=== PATIENT | female | born 1990 | race Caucasian/White ===

== ENCOUNTER 2017-12-31 04:50 | Emergency (ER) | payer MEDICAID ==
[~2017-12-31] VITALS: Ht 165.1 cm; Wt 64.8 kg
[~2017-12-31 04:50] MED LIST: CLON-529 PO; FLUT16SP2 BOTHNARES; METH4TAB3 PO; NO HOME MEDS
[2017-12-31] MEDS ORDERED: ketorolac trometh inj. 60 MG/2 ML VIAL IM ONE (05:15)
[2017-12-31] MEDS ORDERED: AMOX-580 PO (05:15)
[2017-12-31] MEDS ORDERED: HYDROcodone/acetaminophen 5mg/325mg tablet PO ONE (05:15)
[2017-12-31 05:28] VITALS: BP 112/93
== END 2017-12-31 05:29 | disposition home or self-care (01) ==
LOC: ER 04:50
DX: K08.89 Other specified disorders of teeth and supporting structures (principal); F11.10 Opioid abuse, uncomplicated; F15.10 Other stimulant abuse, uncomplicated; F17.210 Nicotine dependence, cigarettes, uncomplicated; F41.9 Anxiety disorder, unspecified
CPT/HCPCS: 96372; 99283; J1885

== ENCOUNTER 2018-03-07 15:30 | Inpatient (IN) | payer MEDICAID ==
[~2018-03-07] VITALS: Ht 167.6 cm; Wt 65.0 kg
[2018-03-07] MEDS ORDERED: ondansetron/PF 4mg/2ml inj IV ONE (16:00)
[2018-03-07 16:27] LABS: BASOPHILS % (AUTO) 0.1 % (0-1); EOSINOPHILS % (AUTO) 0.1 % (0-6); HEMOGLOBIN 15.3 g/dl (12.0-16.0); LYMPHOCYTES # (AUTO) 0.9 X10'3 (1.1-4.8); LYMPHOCYTES % (AUTO) 6.4 % (21-51); MEAN CORPUSCULAR HEMOGLOBIN 27.1 PG (27.0-31.0); MEAN CORPUSCULAR HGB CONC 33.3 % (33.0-36.5); MEAN CORPUSCULAR VOLUME 81.3 FL (78-98); MEAN PLATELET VOLUME 8.1 FL (7.4-10.4); MONOCYTES # (AUTO) 0.9 X10'3 (0-0.9); MONOCYTES % (AUTO) 6.6 % (2-12); NEUTROPHILS # (AUTO) 11.9 X10'3 (1.8-7.7); NEUTROPHILS % (AUTO) 86.8 % (42-75); PLATELET COUNT 336 X10'3 (140-440); RED BLOOD COUNT 5.66 X10'6 (4.20-5.60); RED CELL DISTRIBUTION WIDTH 14.1 % (11.5-14.5); WHITE BLOOD COUNT 13.7 X10'3 (4.5-11.0)
[2018-03-07] MEDS ORDERED: ACETYLCYSTEINE IV ONE ×5 (16:30→22:30)
[2018-03-07] MEDS ORDERED: SODIUM CHLORIDE 0.45% IV ONE ×5 (16:30→22:30)
[2018-03-07 16:34] LABS: INR 1.2 INR; PROTHROMBIN TIME 12.7 SECONDS (9.0-12.0)
[2018-03-07 16:40] LABS: ACETAMINOPHEN 3.8 UG/ML (10-30); ALANINE AMINOTRANSFERASE 548 U/L (12-78); ALBUMIN 3.8 G/DL (3.4-5.0); ALBUMIN/GLOBULIN RATIO 0.8 (1.1-1.5); ALKALINE PHOSPHATASE 150 IU/L (46-116); ANION GAP 9 (8-16); ASPARTATE AMINO TRANSFERASE 518 U/L (10-37); BILIRUBIN,TOTAL 0.8 MG/DL (0.1-1.0); BLOOD UREA NITROGEN 11 MG/DL (7-18); BUN/CREATININE RATIO 13.4 (6.6-38.0); CHLORIDE 100 MMOL/L (99-107); CREATININE 0.82 MG/DL (0.40-0.90); GLUCOSE 97 MG/DL (70-104); LIPASE < 50 U/L (73-393); POTASSIUM 4.5 MMOL/L (3.5-5.1); SODIUM 138 MMOL/L (135-145); TOTAL PROTEIN 8.3 G/DL (6.4-8.2); eGFR 82 ML/MIN
[2018-03-07 16:46] LABS: ETHANOL < 0.010 GM/DL (0.0-0.010)
[2018-03-07 16:50] LABS: URINE HCG NEGATIVE (NEG)
[2018-03-07 17:01] LABS: URINE AMPHETAMINE SCREEN NEGATIVE (Neg); URINE BARBITUATE SCREEN NEGATIVE (Neg); URINE BENZODIAZEPINES SCREEN NEGATIVE (Neg); URINE CANNABINOID SCREEN NEGATIVE (Neg); URINE COCAINE SCREEN NEGATIVE (Neg); URINE METHADONE SCREEN NEGATIVE (Neg); URINE OPIATE SCREEN NEGATIVE (Neg); URINE PHENCYCLIDINE SCREEN NEGATIVE (Neg)
[2018-03-07] MEDS ORDERED: BUPR150T8 PO (17:25)
[2018-03-07] MEDS ORDERED: AMOX500C2 PO (17:27)
[2018-03-07] MEDS ORDERED: magnesium 4gm in 100ml NS 100 ML IV PRN (17:40)
[2018-03-07] MEDS ORDERED: magnesium 2GM in 50ml NS 50 ML IV PRN (17:40)
[2018-03-07] MEDS ORDERED: acetaminophen 325mg tablet PO PRN ×2 (17:40→18:50)
[2018-03-07] MEDS ORDERED: magnesium hydroxide 30ml (MOM) UD suspension PO PRN ×2 (17:40→18:50)
[2018-03-07] MEDS ORDERED: potassium Cl 20 mEq SR tablet PO PRN ×2 (17:40)
[2018-03-07] MEDS ORDERED: magnesium Cl slow-release 64mg tablet PO PRN (17:40)
[2018-03-07] MEDS: K and/or MAG REPLACEMENT MC SCH (17:40)
[2018-03-07] MEDS ORDERED: mag hydrox/Alum hydrox/simeth 30ml oral suspension PO PRN ×2 (17:40→18:50)
[2018-03-07] MEDS ORDERED: ondansetron/PF 4mg/2ml inj IV PRN (17:40)
[2018-03-07] MEDS ORDERED: potassium Cl 40MEQ/NS 500ml 500 ML IV PRN ×2 (17:40)
[2018-03-07] MEDS: normal saline 1000ml 1,000 ML IV SCH ×2 (17:55→19:12)
[2018-03-07] MEDS ORDERED: MORPHINE 2MG in 2ml NS syringe IV ONE (18:40)
[2018-03-07] MEDS ORDERED: morphine 4 MG/ML inj SYRINge IV PRN (18:50)
[2018-03-07 19:09] LABS: ALANINE AMINOTRANSFERASE 491 U/L (12-78); ALBUMIN 3.5 G/DL (3.4-5.0); ALBUMIN/GLOBULIN RATIO 0.8 (1.1-1.5); ALKALINE PHOSPHATASE 128 IU/L (46-116); ANION GAP 17 (8-16); ASPARTATE AMINO TRANSFERASE 402 U/L (10-37); BILIRUBIN,TOTAL 0.9 MG/DL (0.1-1.0); BLOOD UREA NITROGEN 12 MG/DL (7-18); BUN/CREATININE RATIO 15.8 (6.6-38.0); CALCIUM 8.9 MG/DL (8.5-10.1); CHLORIDE 98 MMOL/L (99-107); CREATININE 0.76 MG/DL (0.40-0.90); GLUCOSE 99 MG/DL (70-104); POTASSIUM 4.5 MMOL/L (3.5-5.1); SODIUM 143 MMOL/L (135-145); TOTAL CARBON DIOXIDE 27.7 MMOL/L (24-32); TOTAL PROTEIN 8.1 G/DL (6.4-8.2); eGFR 90 ML/MIN
[2018-03-07] MEDS: heparin, porcine 5000 units/ml vial SQ SCH (20:16)
[2018-03-07] MEDS: clindamycin 150mg capsule PO SCH (20:16)
[2018-03-07] MEDS: docusate sod 100mg capsule PO SCH (20:16)
[2018-03-07] MEDS: ondansetron/PF 4mg/2ml inj IV PRN (20:28)
[2018-03-07] MEDS ORDERED: temazepam 15mg capsule PO PRN (21:00)
[2018-03-08] MEDS: clindamycin 150mg capsule PO SCH ×4 (02:11→19:30)
[2018-03-08] MEDS: lidocaine 2% viscous 15 ML cup ***bronch room only MM PRN ×2 (02:12→04:45)
[2018-03-08] MEDS: MORPHINE 2MG in 2ml NS syringe IV PRN ×3 (04:28→17:53)
[2018-03-08] MEDS: ondansetron/PF 4mg/2ml inj IV PRN ×2 (04:29→19:31)
[2018-03-08 05:01] LABS: BASOPHILS # (AUTO) 0.2 X10'3 (0-0.2); EOSINOPHILS # (AUTO) 0.2 X10'3 (0-0.9); EOSINOPHILS % (AUTO) 1.3 % (0-6); HEMATOCRIT 42.1 % (35.0-45.0); HEMOGLOBIN 14.3 g/dl (12.0-16.0); LYMPHOCYTES # (AUTO) 1.6 X10'3 (1.1-4.8); LYMPHOCYTES % (AUTO) 9.1 % (21-51); MEAN CORPUSCULAR HEMOGLOBIN 27.5 PG (27.0-31.0); MEAN CORPUSCULAR HGB CONC 33.9 % (33.0-36.5); MEAN CORPUSCULAR VOLUME 81.2 FL (78-98); MEAN PLATELET VOLUME 7.9 FL (7.4-10.4); MONOCYTES # (AUTO) 1.2 X10'3 (0-0.9); MONOCYTES % (AUTO) 6.9 % (2-12); NEUTROPHILS # (AUTO) 14.5 X10'3 (1.8-7.7); NEUTROPHILS % (AUTO) 81.7 % (42-75); PLATELET COUNT 330 X10'3 (140-440); RED BLOOD COUNT 5.19 X10'6 (4.20-5.60); RED CELL DISTRIBUTION WIDTH 14.6 % (11.5-14.5); WHITE BLOOD COUNT 17.7 X10'3 (4.5-11.0)
[2018-03-08 05:12] LABS: INR 1.4 INR; PROTHROMBIN TIME 14.1 SECONDS (9.0-12.0)
[2018-03-08 05:17] LABS: ALANINE AMINOTRANSFERASE 441 U/L (12-78); ALBUMIN/GLOBULIN RATIO 0.8 (1.1-1.5); ALKALINE PHOSPHATASE 111 IU/L (46-116); ANION GAP 12 (8-16); ASPARTATE AMINO TRANSFERASE 310 U/L (10-37); BILIRUBIN,TOTAL 0.9 MG/DL (0.1-1.0); BLOOD UREA NITROGEN 11 MG/DL (7-18); BUN/CREATININE RATIO 13.8 (6.6-38.0); CALCIUM 8.2 MG/DL (8.5-10.1); CHLORIDE 102 MMOL/L (99-107); GLUCOSE 96 MG/DL (70-104); MAGNESIUM 1.6 MG/DL (1.5-2.4); POTASSIUM 3.8 MMOL/L (3.5-5.1); SODIUM 140 MMOL/L (135-145); TOTAL CARBON DIOXIDE 25.9 MMOL/L (24-32); eGFR 85 ML/MIN
[2018-03-08 05:18] LABS: ACETAMINOPHEN < 2.0 UG/ML (10-30)
[2018-03-08] MEDS: K and/or MAG REPLACEMENT MC SCH (08:00)
[2018-03-08] MEDS ORDERED: pantoprazole 40 MG vial IV ONE (08:00)
[2018-03-08] MEDS: heparin, porcine 5000 units/ml vial SQ SCH ×2 (09:41→19:30)
[2018-03-08] MEDS: docusate sod 100mg capsule PO SCH ×2 (09:41→19:30)
[2018-03-08] MEDS: normal saline 1000ml 1,000 ML IV SCH (09:52)
[2018-03-08 10:12] VITALS: BP 102/74
[2018-03-08 10:16] LABS: ACETAMINOPHEN < 2.0 UG/ML (10-30); ALANINE AMINOTRANSFERASE 400 U/L (12-78); ALBUMIN 2.7 G/DL (3.4-5.0); ALBUMIN/GLOBULIN RATIO 0.7 (1.1-1.5); ALKALINE PHOSPHATASE 100 IU/L (46-116); ANION GAP 8 (8-16); ASPARTATE AMINO TRANSFERASE 255 U/L (10-37); BILIRUBIN,TOTAL 0.6 MG/DL (0.1-1.0); BLOOD UREA NITROGEN 10 MG/DL (7-18); BUN/CREATININE RATIO 13.2 (6.6-38.0); CALCIUM 8.1 MG/DL (8.5-10.1); CHLORIDE 103 MMOL/L (99-107); CREATININE 0.76 MG/DL (0.40-0.90); GLUCOSE 122 MG/DL (70-104); POTASSIUM 3.8 MMOL/L (3.5-5.1); SODIUM 139 MMOL/L (135-145); TOTAL CARBON DIOXIDE 27.8 MMOL/L (24-32); TOTAL PROTEIN 6.5 G/DL (6.4-8.2); eGFR 90 ML/MIN
[2018-03-08] MEDS ORDERED: ACETYLCYSTEINE IV ONE (11:15)
[2018-03-08] MEDS ORDERED: SODIUM CHLORIDE 0.45% IV ONE (11:15)
[2018-03-08 12:43] VITALS: BP 97/61
[2018-03-08 16:31] LABS: ALANINE AMINOTRANSFERASE 427 U/L (12-78); ALBUMIN/GLOBULIN RATIO 0.8 (1.1-1.5); ALKALINE PHOSPHATASE 117 IU/L (46-116); ANION GAP 9 (8-16); ASPARTATE AMINO TRANSFERASE 232 U/L (10-37); BILIRUBIN,TOTAL 0.5 MG/DL (0.1-1.0); BLOOD UREA NITROGEN 10 MG/DL (7-18); CALCIUM 8.2 MG/DL (8.5-10.1); CHLORIDE 101 MMOL/L (99-107); CREATININE 0.77 MG/DL (0.40-0.90); GLUCOSE 99 MG/DL (70-104); POTASSIUM 3.8 MMOL/L (3.5-5.1); SODIUM 137 MMOL/L (135-145); TOTAL CARBON DIOXIDE 26.7 MMOL/L (24-32); eGFR 89 ML/MIN
[2018-03-08 16:35] LABS: ACETAMINOPHEN < 2.0 UG/ML (10-30)
[2018-03-08 18:39] LABS: ALANINE AMINOTRANSFERASE 394 U/L (12-78); ALBUMIN 2.9 G/DL (3.4-5.0); ALBUMIN/GLOBULIN RATIO 0.8 (1.1-1.5); ALKALINE PHOSPHATASE 104 IU/L (46-116); ASPARTATE AMINO TRANSFERASE 207 U/L (10-37); BILIRUBIN,DIRECT 0.2 MG/DL (0-0.3); BILIRUBIN,TOTAL 0.5 MG/DL (0.1-1.0); TOTAL PROTEIN 6.7 G/DL (6.4-8.2)
[2018-03-08 19:00] VITALS: BP_SYST 108; BP_SYST 91; BP_DIAS 53; BP_DIAS 63
[2018-03-08] MEDS: lactobacillus rhamnosus 10,000 MMU CELLS/CAPSULE PO SCH (19:30)
[2018-03-09] VITALS: BP 93/55
[2018-03-09] MEDS: clindamycin 150mg capsule PO SCH ×4 (01:52→20:56)
[2018-03-09 05:33] LABS: BASOPHILS % (AUTO) 0.5 % (0-1); EOSINOPHILS # (AUTO) 0.3 X10'3 (0-0.9); EOSINOPHILS % (AUTO) 2.4 % (0-6); HEMATOCRIT 36.6 % (35.0-45.0); HEMOGLOBIN 12.3 g/dl (12.0-16.0); LYMPHOCYTES # (AUTO) 1.3 X10'3 (1.1-4.8); LYMPHOCYTES % (AUTO) 12.3 % (21-51); MEAN CORPUSCULAR HEMOGLOBIN 27.3 PG (27.0-31.0); MEAN CORPUSCULAR HGB CONC 33.6 % (33.0-36.5); MEAN CORPUSCULAR VOLUME 81.2 FL (78-98); MEAN PLATELET VOLUME 8.4 FL (7.4-10.4); MONOCYTES % (AUTO) 9.1 % (2-12); NEUTROPHILS # (AUTO) 8.3 X10'3 (1.8-7.7); NEUTROPHILS % (AUTO) 75.7 % (42-75); PLATELET COUNT 279 X10'3 (140-440); RED BLOOD COUNT 4.51 X10'6 (4.20-5.60); RED CELL DISTRIBUTION WIDTH 14.6 % (11.5-14.5)
[2018-03-09 05:41] LABS: INR 1.1 INR; PROTHROMBIN TIME 11.6 SECONDS (9.0-12.0)
[2018-03-09 06:00] LABS: ALANINE AMINOTRANSFERASE 505 U/L (12-78); ALBUMIN 2.8 G/DL (3.4-5.0); ALBUMIN/GLOBULIN RATIO 0.8 (1.1-1.5); ALKALINE PHOSPHATASE 98 IU/L (46-116); ANION GAP 7 (8-16); ASPARTATE AMINO TRANSFERASE 381 U/L (10-37); BILIRUBIN,DIRECT 0.1 MG/DL (0-0.3); BILIRUBIN,TOTAL 0.5 MG/DL (0.1-1.0); BLOOD UREA NITROGEN 9 MG/DL (7-18); BUN/CREATININE RATIO 12.9 (6.6-38.0); CALCIUM 8.4 MG/DL (8.5-10.1); CHLORIDE 105 MMOL/L (99-107); GLUCOSE 90 MG/DL (70-104); MAGNESIUM 1.7 MG/DL (1.5-2.4); POTASSIUM 4.1 MMOL/L (3.5-5.1); SODIUM 140 MMOL/L (135-145); TOTAL CARBON DIOXIDE 28.2 MMOL/L (24-32); TOTAL PROTEIN 6.4 G/DL (6.4-8.2); eGFR > 90 ML/MIN
[2018-03-09 08:00] VITALS: BP 99/64
[2018-03-09] MEDS: K and/or MAG REPLACEMENT MC SCH (08:00)
[2018-03-09] MEDS ORDERED: SODIUM CHLORIDE 0.45% IV ONE (10:00)
[2018-03-09] MEDS ORDERED: ACETYLCYSTEINE IV ONE (10:00)
[2018-03-09] MEDS: heparin, porcine 5000 units/ml vial SQ SCH ×2 (10:12→20:58)
[2018-03-09] MEDS: docusate sod 100mg capsule PO SCH ×2 (10:12→20:56)
[2018-03-09] MEDS: lactobacillus rhamnosus 10,000 MMU CELLS/CAPSULE PO SCH ×2 (10:12→20:56)
[2018-03-09 11:31] VITALS: BP 106/62
[2018-03-09] MEDS: MORPHINE 2MG in 2ml NS syringe IV PRN ×2 (14:04→21:09)
[2018-03-09] MEDS ORDERED: ACETYLCYSTEINE IV PRN (17:10)
[2018-03-09] MEDS ORDERED: SODIUM CHLORIDE 0.45% IV PRN (17:10)
[2018-03-09 19:00] VITALS: BP 101/57
[2018-03-09] MEDS: ondansetron/PF 4mg/2ml inj IV PRN (20:56)
[2018-03-09 23:00] VITALS: BP 101/64
[2018-03-10 02:18] LABS: BASOPHILS # (AUTO) 0.1 X10'3 (0-0.2); BASOPHILS % (AUTO) 0.6 % (0-1); EOSINOPHILS # (AUTO) 0.2 X10'3 (0-0.9); EOSINOPHILS % (AUTO) 2.8 % (0-6); HEMATOCRIT 34.4 % (35.0-45.0); HEMOGLOBIN 11.5 g/dl (12.0-16.0); LYMPHOCYTES # (AUTO) 1.8 X10'3 (1.1-4.8); LYMPHOCYTES % (AUTO) 20.6 % (21-51); MEAN CORPUSCULAR HEMOGLOBIN 27.2 PG (27.0-31.0); MEAN CORPUSCULAR HGB CONC 33.4 % (33.0-36.5); MEAN CORPUSCULAR VOLUME 81.6 FL (78-98); MEAN PLATELET VOLUME 8.2 FL (7.4-10.4); MONOCYTES # (AUTO) 0.9 X10'3 (0-0.9); NEUTROPHILS # (AUTO) 5.8 X10'3 (1.8-7.7); PLATELET COUNT 358 X10'3 (140-440); RED BLOOD COUNT 4.21 X10'6 (4.20-5.60); WHITE BLOOD COUNT 8.7 X10'3 (4.5-11.0)
[2018-03-10] MEDS: clindamycin 150mg capsule PO SCH ×4 (02:56→21:14)
[2018-03-10 03:49] LABS: INR 1.1 INR; PROTHROMBIN TIME 10.9 SECONDS (9.0-12.0)
[2018-03-10 03:57] LABS: ALANINE AMINOTRANSFERASE 514 U/L (12-78); ALBUMIN 2.7 G/DL (3.4-5.0); ALBUMIN/GLOBULIN RATIO 0.7 (1.1-1.5); ALKALINE PHOSPHATASE 118 IU/L (46-116); ANION GAP 7 (8-16); ASPARTATE AMINO TRANSFERASE 209 U/L (10-37); BILIRUBIN,TOTAL 0.4 MG/DL (0.1-1.0); BLOOD UREA NITROGEN 11 MG/DL (7-18); BUN/CREATININE RATIO 17.2 (6.6-38.0); CALCIUM 8.4 MG/DL (8.5-10.1); CHLORIDE 104 MMOL/L (99-107); CREATININE 0.64 MG/DL (0.40-0.90); GLUCOSE 102 MG/DL (70-104); MAGNESIUM 1.7 MG/DL (1.5-2.4); POTASSIUM 3.8 MMOL/L (3.5-5.1); SODIUM 140 MMOL/L (135-145); TOTAL CARBON DIOXIDE 28.7 MMOL/L (24-32); TOTAL PROTEIN 6.7 G/DL (6.4-8.2); eGFR > 90 ML/MIN
[2018-03-10] MEDS: K and/or MAG REPLACEMENT MC SCH (07:11)
[2018-03-10] MEDS: lactobacillus rhamnosus 10,000 MMU CELLS/CAPSULE PO SCH ×2 (07:17→21:15)
[2018-03-10] MEDS: heparin, porcine 5000 units/ml vial SQ SCH ×2 (07:17→21:14)
[2018-03-10] MEDS: docusate sod 100mg capsule PO SCH ×2 (07:17→21:14)
[2018-03-10 07:46] VITALS: BP 103/53
[2018-03-10 12:51] VITALS: BP 104/61
[2018-03-10] MEDS: MORPHINE 2MG in 2ml NS syringe IV PRN ×2 (17:28→23:12)
[2018-03-10 22:36] LABS: ALANINE AMINOTRANSFERASE 387 U/L (12-78); ALBUMIN 2.8 G/DL (3.4-5.0); ALBUMIN/GLOBULIN RATIO 0.7 (1.1-1.5); ALKALINE PHOSPHATASE 114 IU/L (46-116); ANION GAP 6 (8-16); ASPARTATE AMINO TRANSFERASE 106 U/L (10-37); BILIRUBIN,TOTAL 0.3 MG/DL (0.1-1.0); BLOOD UREA NITROGEN 14 MG/DL (7-18); BUN/CREATININE RATIO 23.3 (6.6-38.0); CALCIUM 8.7 MG/DL (8.5-10.1); CHLORIDE 103 MMOL/L (99-107); GLUCOSE 94 MG/DL (70-104); POTASSIUM 3.9 MMOL/L (3.5-5.1); SODIUM 140 MMOL/L (135-145); TOTAL CARBON DIOXIDE 31.1 MMOL/L (24-32); TOTAL PROTEIN 6.9 G/DL (6.4-8.2); eGFR > 90 ML/MIN
[2018-03-10 23:30] VITALS: BP 94/54
[2018-03-11] MEDS: clindamycin 150mg capsule PO SCH ×2 (02:03→07:29)
[2018-03-11 05:03] LABS: BASOPHILS # (AUTO) 0.1 X10'3 (0-0.2); BASOPHILS % (AUTO) 1.4 % (0-1); EOSINOPHILS # (AUTO) 0.2 X10'3 (0-0.9); EOSINOPHILS % (AUTO) 3.1 % (0-6); HEMATOCRIT 34.1 % (35.0-45.0); HEMOGLOBIN 11.4 g/dl (12.0-16.0); LYMPHOCYTES # (AUTO) 2.5 X10'3 (1.1-4.8); LYMPHOCYTES % (AUTO) 31.8 % (21-51); MEAN CORPUSCULAR HGB CONC 33.2 % (33.0-36.5); MEAN CORPUSCULAR VOLUME 81.4 FL (78-98); MEAN PLATELET VOLUME 8.5 FL (7.4-10.4); MONOCYTES # (AUTO) 0.7 X10'3 (0-0.9); MONOCYTES % (AUTO) 9.7 % (2-12); NEUTROPHILS # (AUTO) 4.2 X10'3 (1.8-7.7); PLATELET COUNT 289 X10'3 (140-440); RED CELL DISTRIBUTION WIDTH 14.7 % (11.5-14.5); WHITE BLOOD COUNT 7.7 X10'3 (4.5-11.0)
[2018-03-11 05:22] LABS: ALANINE AMINOTRANSFERASE 342 U/L (12-78); ALBUMIN 2.7 G/DL (3.4-5.0); ALBUMIN/GLOBULIN RATIO 0.7 (1.1-1.5); ALKALINE PHOSPHATASE 107 IU/L (46-116); ANION GAP 8 (8-16); ASPARTATE AMINO TRANSFERASE 91 U/L (10-37); BILIRUBIN,TOTAL 0.2 MG/DL (0.1-1.0); BLOOD UREA NITROGEN 17 MG/DL (7-18); BUN/CREATININE RATIO 30.9 (6.6-38.0); CALCIUM 8.5 MG/DL (8.5-10.1); CHLORIDE 104 MMOL/L (99-107); CREATININE 0.55 MG/DL (0.40-0.90); GLUCOSE 87 MG/DL (70-104); MAGNESIUM 1.7 MG/DL (1.5-2.4); POTASSIUM 3.7 MMOL/L (3.5-5.1); SODIUM 142 MMOL/L (135-145); TOTAL PROTEIN 6.4 G/DL (6.4-8.2); eGFR > 90 ML/MIN
[2018-03-11 06:29] LABS: PROTHROMBIN TIME 9.9 SECONDS (9.0-12.0)
[2018-03-11 07:11] VITALS: BP 93/56
[2018-03-11] MEDS: K and/or MAG REPLACEMENT MC SCH (07:29)
[2018-03-11] MEDS: docusate sod 100mg capsule PO SCH (07:29)
[2018-03-11] MEDS: lactobacillus rhamnosus 10,000 MMU CELLS/CAPSULE PO SCH (07:30)
[2018-03-11] MEDS: heparin, porcine 5000 units/ml vial SQ SCH (07:30)
[2018-03-11] MEDS ORDERED: HYDROcodone/acetaminophen 5mg/325mg tablet PO ONE (11:40)
[2018-03-11 11:45] VITALS: BP 98/51
[2018-03-11] MEDS ORDERED: HYDROcodone/acetaminophen 10/325mg tab PO ONE (11:45)
== END 2018-03-11 12:30 | disposition home or self-care (01) | DRG 812 ==
LOC: ER 15:31 → ED HOLD 17:37 → UNDOADMIN 17:37 → SUR 3N 03-08 09:14
PROVIDERS: ADMIT Family Medicine; ATTEND Internal Medicine
DX: T39.1X1A Poisoning by 4-Aminophenol derivatives, accidental (unintentional), initial encounter (principal); K50.90 Crohn's disease, unspecified, without complications; B17.9 Acute viral hepatitis, unspecified; F11.10 Opioid abuse, uncomplicated; F15.10 Other stimulant abuse, uncomplicated; F17.210 Nicotine dependence, cigarettes, uncomplicated; F41.9 Anxiety disorder, unspecified; K04.7 Periapical abscess without sinus; Y92.89 Other specified places as the place of occurrence of the external cause; Z79.899 Other long term (current) drug therapy; Z56.0 Unemployment, unspecified
CPT/HCPCS: 36415; 71045; 80053; 80076; 80305; 80320; 80329; 81025; 83690; 83735; 85025; 85610; 87070; 96374; 99285; C9113; J0132; J1644; J2274; J2405; J7030

== ENCOUNTER 2018-04-15 16:02 | Emergency (ER) | payer MEDICAID ==
[~2018-04-15] VITALS: Ht 165.1 cm; Wt 64.0 kg
[~2018-04-15 16:02] MED LIST changes: +AMOX500C2 PO; +BUPR150T8 PO; -CLON-529 PO; -FLUT16SP2 BOTHNARES; -METH4TAB3 PO; -NO HOME MEDS
[2018-04-15 16:41] LABS: URINE HCG NEGATIVE (NEG)
[2018-04-15 16:42] LABS: CLARITY,URINE CLOUDY (Clear); COLOR,URINE YELLOW (Yellow); GLUCOSE, URINE NEGATIVE (Neg); KETONES,URINE NEGATIVE (Neg); LEUKOCYTE ESTERASE ,URINE LARGE (Neg); NITRITES, URINE NEGATIVE (Neg); OCCULT BLOOD,URINE LARGE (Neg); PH,URINE 7.5 (4.8-8.0); PROTEIN,URINE >=300 mg/dl (Neg)
[2018-04-15 16:44] LABS: UA COLLECTION TYPE CLN CATCH MIDSTREAM
[2018-04-15 16:52] LABS: BACTERIA,URINE FEW /HPF (Neg); MUCUS STRANDS NONE SEEN /LPF (Neg); SQUAMOUS EPITHELIAL CELL,UR FEW /LPF (FEW); WBC,URINE TNTC /HPF (0-4)
[2018-04-15] MEDS ORDERED: PHEN-716 PO (16:58)
[2018-04-15] MEDS ORDERED: CEPH-572 PO (16:58)
[2018-04-15 17:04] VITALS: BP 128/75
== END 2018-04-15 17:08 | disposition home or self-care (01) ==
LOC: ER 16:03
DX: N39.0 Urinary tract infection, site not specified (principal); F15.90 Other stimulant use, unspecified, uncomplicated; F11.90 Opioid use, unspecified, uncomplicated; Z56.0 Unemployment, unspecified; Z98.890 Other specified postprocedural states; Z79.899 Other long term (current) drug therapy
CPT/HCPCS: 81001; 81025; 87077; 87088; 87186; 99284

== ENCOUNTER 2018-06-28 16:09 | Emergency (ER) | payer MEDICAID ==
[~2018-06-28] VITALS: Ht 165.1 cm; Wt 63.0 kg
[~2018-06-28 16:09] MED LIST changes: +PHEN-716 PO
[2018-06-28] MEDS ORDERED: BUPR2TAB11 SL (16:51)
[2018-06-28] MEDS ORDERED: normal saline 1000ML IV soln IVB ONE (18:55)
[2018-06-28 19:19] LABS: BASOPHILS % (AUTO) 0.3 % (0-1); EOSINOPHILS % (AUTO) 0.4 % (0-6); HEMOGLOBIN 12.8 g/dl (12.0-16.0); LYMPHOCYTES # (AUTO) 1.2 X10'3 (1.1-4.8); LYMPHOCYTES % (AUTO) 16.7 % (21-51); MEAN CORPUSCULAR HEMOGLOBIN 25.9 PG (27.0-31.0); MEAN CORPUSCULAR HGB CONC 32.9 % (33.0-36.5); MEAN CORPUSCULAR VOLUME 78.6 FL (78-98); MEAN PLATELET VOLUME 7.7 FL (7.4-10.4); MONOCYTES # (AUTO) 0.4 X10'3 (0-0.9); MONOCYTES % (AUTO) 5.1 % (2-12); NEUTROPHILS # (AUTO) 5.8 X10'3 (1.8-7.7); NEUTROPHILS % (AUTO) 77.5 % (42-75); PLATELET COUNT 213 X10'3 (140-440); RED BLOOD COUNT 4.96 X10'6 (4.20-5.60); RED CELL DISTRIBUTION WIDTH 14.3 % (11.5-14.5); WHITE BLOOD COUNT 7.4 X10'3 (4.5-11.0)
[2018-06-28 19:41] LABS: ALANINE AMINOTRANSFERASE 25 U/L (12-78); ALBUMIN 3.5 G/DL (3.4-5.0); ALBUMIN/GLOBULIN RATIO 0.8 (1.1-1.5); ALKALINE PHOSPHATASE 99 IU/L (46-116); ANION GAP 3 (8-16); ASPARTATE AMINO TRANSFERASE 25 U/L (10-37); BILIRUBIN,TOTAL 0.3 MG/DL (0.1-1.0); BLOOD UREA NITROGEN 9 MG/DL (7-18); BUN/CREATININE RATIO 12.9 (6.6-38.0); CALCIUM 8.7 MG/DL (8.5-10.1); CHLORIDE 103 MMOL/L (99-107); GLUCOSE 95 MG/DL (70-104); POTASSIUM 4.4 MMOL/L (3.5-5.1); SODIUM 136 MMOL/L (135-145); TOTAL CARBON DIOXIDE 29.6 MMOL/L (24-32); eGFR > 90 ML/MIN
[2018-06-28] MEDS ORDERED: ondansetron 4mg rapidly disintigrating tab PO ONE (20:00)
[2018-06-28 20:08] VITALS: BP 107/81
== END 2018-06-28 20:09 | disposition home or self-care (01) ==
LOC: ER 16:10
DX: T40.601A Poisoning by unspecified narcotics, accidental (unintentional), initial encounter (principal); R11.2 Nausea with vomiting, unspecified; F15.10 Other stimulant abuse, uncomplicated; F11.10 Opioid abuse, uncomplicated; R61 Generalized hyperhidrosis; E86.0 Dehydration; Z56.0 Unemployment, unspecified; Z79.899 Other long term (current) drug therapy; Z98.890 Other specified postprocedural states; Y92.89 Other specified places as the place of occurrence of the external cause
CPT/HCPCS: 36415; 80053; 85025; 96360; 99284; J7030

== ENCOUNTER 2019-06-07 18:24 | Emergency (ER) | payer MEDICAID ==
[~2019-06-07] VITALS: Ht 165.1 cm; Wt 51.5 kg
[~2019-06-07 18:24] MED LIST changes: -AMOX500C2 PO; -BUPR150T8 PO; +BUPR2TAB11 SL; -PHEN-716 PO
--- NOTE | 2019-06-07 20:36 | NUR ---
PATIENT HERE FOR MEDICAL CLEARANCE FOR ENTRANCE INTO TREATMENT FOR VISION OF THE CROSS, LAST USE OF HEROIN AND METH WAS YESTERDAY. PATIENT ESTIMATES THAT SHE IS 10 WEEKS
[2019-06-07 20:38] VITALS: BP 120/76
== END 2019-06-07 20:40 | disposition home or self-care (01) ==
LOC: ER 18:25
DX: O99.321 Drug use complicating pregnancy, first trimester (principal); F11.90 Opioid use, unspecified, uncomplicated; F15.90 Other stimulant use, unspecified, uncomplicated; F41.9 Anxiety disorder, unspecified; Z98.890 Other specified postprocedural states; Z56.0 Unemployment, unspecified; Z79.899 Other long term (current) drug therapy; Z3A.10 10 weeks gestation of pregnancy
CPT/HCPCS: 99281

== ENCOUNTER 2019-08-24 20:57 | Emergency (ER) | payer MEDICAID ==
[~2019-08-24] VITALS: Ht 165.1 cm; Wt 64.0 kg
[~2019-08-24 20:57] MED LIST changes: +LIDOcaine 1% W/epiNEPHrine 1:100,000 20ml vial ONE
[2019-08-24] MEDS ORDERED: ketorolac trometh inj. 60 MG/2 ML VIAL IM ONE (21:50)
[2019-08-24] MEDS ORDERED: SULF1TAB49 PO (21:53)
[2019-08-24 22:40] VITALS: BP 123/69
== END 2019-08-24 22:41 | disposition home or self-care (01) ==
LOC: ER 21:02
DX: L02.511 Cutaneous abscess of right hand (principal); F41.9 Anxiety disorder, unspecified; F15.90 Other stimulant use, unspecified, uncomplicated; F11.90 Opioid use, unspecified, uncomplicated; Z56.0 Unemployment, unspecified; Z79.899 Other long term (current) drug therapy; Z98.890 Other specified postprocedural states
CPT/HCPCS: 10060; 96372; 99283; J1885

== ENCOUNTER 2019-12-05 07:13 | Emergency (ER) | payer MEDICAID ==
[~2019-12-05] VITALS: Ht 165.1 cm; Wt 60.0 kg
[~2019-12-05 07:13] MED LIST changes: -LIDOcaine 1% W/epiNEPHrine 1:100,000 20ml vial ONE
--- NOTE | 2019-12-05 07:41 | NUR ---
pt ambulated to bathroom with steady gait, no assistance needed to give urine sample. ambulated about 100 feet total.
[2019-12-05] MEDS ORDERED: normal saline 1000ML IV soln IVB ONE ×2 (07:45)
--- NOTE | 2019-12-05 08:00 | NUR ---
attempted IV x2 will see if ultrasound available.
[2019-12-05 08:17] LABS: BASOPHILS # (AUTO) 0.1 X10'3 (0-0.2); BASOPHILS % (AUTO) 0.6 % (0-1); EOSINOPHILS # (AUTO) 0.1 X10'3 (0-0.9); EOSINOPHILS % (AUTO) 0.4 % (0-6); HEMOGLOBIN 11.4 g/dl (12.0-16.0); LYMPHOCYTES # (AUTO) 3.3 X10'3 (1.1-4.8); LYMPHOCYTES % (AUTO) 19.6 % (21-51); MEAN CORPUSCULAR HEMOGLOBIN 23.1 PG (27.0-31.0); MEAN CORPUSCULAR HGB CONC 31.7 g/dL (33.0-36.5); MEAN CORPUSCULAR VOLUME 72.9 FL (78-98); MEAN PLATELET VOLUME 8.5 FL (7.4-10.4); MONOCYTES # (AUTO) 1.4 X10'3 (0-0.9); NEUTROPHILS % (AUTO) 71.4 % (42-75); PLATELET COUNT 557 X10'3 (140-440); RED BLOOD COUNT 4.94 X10'6 (4.20-5.60); RED CELL DISTRIBUTION WIDTH 15.5 % (11.5-14.5); WHITE BLOOD COUNT 16.8 X10'3 (4.5-11.0)
[2019-12-05 08:23] LABS: CLARITY,URINE CLEAR (Clear); COLOR,URINE YELLOW (Yellow); GLUCOSE, URINE NEGATIVE (Neg); KETONES,URINE NEGATIVE (Neg); LEUKOCYTE ESTERASE ,URINE NEGATIVE (Neg); NITRITES, URINE NEGATIVE (Neg); OCCULT BLOOD,URINE NEGATIVE (Neg); PROTEIN,URINE NEGATIVE (Neg); UA COLLECTION TYPE CLN CATCH MIDSTREAM; UROBILINOGEN,URINE 0.2 E.U/dL (0.2-1.0)
[2019-12-05 09:21] LABS: ALANINE AMINOTRANSFERASE 28 U/L (12-78); ALBUMIN 2.4 G/DL (3.4-5.0); ALBUMIN/GLOBULIN RATIO 0.4 (1.1-1.5); ALKALINE PHOSPHATASE 324 IU/L (46-116); ANION GAP 12 (8-16); ASPARTATE AMINO TRANSFERASE 30 U/L (10-37); BILIRUBIN,TOTAL 0.6 MG/DL (0.1-1.0); BLOOD UREA NITROGEN 6 MG/DL (7-18); BUN/CREATININE RATIO 9.4 (6.6-38.0); CALCIUM 8.7 MG/DL (8.5-10.1); CHLORIDE 102 MMOL/L (99-107); CREATININE 0.64 MG/DL (0.40-0.90); GLUCOSE 81 MG/DL (70-104); LIPASE 56 U/L (73-393); POTASSIUM 3.7 MMOL/L (3.5-5.1); SODIUM 135 MMOL/L (135-145); TOTAL CARBON DIOXIDE 20.8 MMOL/L (24-32); TOTAL PROTEIN 7.8 G/DL (6.4-8.2); eGFR > 90 ML/MIN
[2019-12-05] MEDS ORDERED: predniSONE 20 mg tablet PO ONE (09:55)
[2019-12-05] MEDS ORDERED: acetaminophen 325mg tablet PO ONE (09:55)
[2019-12-05] MEDS ORDERED: PRED20TA PO (09:57)
[2019-12-05 10:09] VITALS: BP 147/71
[2019-12-05 10:35] LABS: URINE AMPHETAMINE SCREEN POSITIVE (Neg); URINE BARBITUATE SCREEN NEGATIVE (Neg); URINE BENZODIAZEPINES SCREEN NEGATIVE (Neg); URINE CANNABINOID SCREEN NEGATIVE (Neg); URINE COCAINE SCREEN NEGATIVE (Neg); URINE METHADONE SCREEN NEGATIVE (Neg); URINE OPIATE SCREEN POSITIVE (Neg); URINE PHENCYCLIDINE SCREEN NEGATIVE (Neg)
== END 2019-12-05 10:13 | disposition home or self-care (01) ==
LOC: ER 07:14
DX: O26.893 Other specified pregnancy related conditions, third trimester (principal); O21.9 Vomiting of pregnancy, unspecified; O99.343 Other mental disorders complicating pregnancy, third trimester; O99.313 Alcohol use complicating pregnancy, third trimester; O99.323 Drug use complicating pregnancy, third trimester; E86.0 Dehydration; R19.7 Diarrhea, unspecified; R10.84 Generalized abdominal pain; F41.9 Anxiety disorder, unspecified; F15.90 Other stimulant use, unspecified, uncomplicated; F11.90 Opioid use, unspecified, uncomplicated; Z56.0 Unemployment, unspecified; Z98.890 Other specified postprocedural states; Z79.899 Other long term (current) drug therapy
CPT/HCPCS: 36415; 80053; 80305; 81003; 83690; 85025; 96360; 99283; J7030; J7512

== ENCOUNTER 2020-11-03 08:07 | Emergency (ER) | payer MEDICAID ==
[~2020-11-03] VITALS: Ht 165.1 cm; Wt 55.4 kg
[2020-11-03 08:16] VITALS: BP 108/77
--- NOTE | 2020-11-03 08:53 | NUR ---
Walked to bedside with MD. Found pt's room empty. Went to registration, who stated that the pt was using the public phone next to the registration box. Registration then had to lave their box and the pt was gone when they returned. Screener at front door states that she witnessed the pt ambulating out of the department with a steady gait.
== END 2020-11-03 08:57 | disposition left against medical advice (07) ==
LOC: ER 08:08
DX: F41.9 Anxiety disorder, unspecified (principal); Z53.21 Procedure and treatment not carried out due to patient leaving prior to being seen by health care provider

== ENCOUNTER 2021-03-26 13:22 | Emergency (ER) | payer MEDICAID ==
[~2021-03-26] VITALS: Ht 167.6 cm; Wt 59.2 kg
[2021-03-26] MEDS ORDERED: normal saline 1000ML IV soln IVB ONE (13:50)
[2021-03-26] MEDS ORDERED: aspirin 81mg tab.chew PO ONE (13:50)
[2021-03-26] MEDS ORDERED: LORazepam 2 mg/ml vial IV ONE ×2 (14:00→15:35)
[2021-03-26] MEDS ORDERED: cloNIDine 0.1 mg tablet PO ONE (14:00)
[2021-03-26 14:43] LABS: BASOPHILS # (AUTO) 0.1 X10'3 (0-0.2); BASOPHILS % (AUTO) 0.7 % (0-1); EOSINOPHILS # (AUTO) 0.1 X10'3 (0-0.9); EOSINOPHILS % (AUTO) 0.5 % (0-6); HEMATOCRIT 39.3 % (35.0-45.0); HEMOGLOBIN 12.8 g/dl (12.0-16.0); LYMPHOCYTES # (AUTO) 0.9 X10'3 (1.1-4.8); LYMPHOCYTES % (AUTO) 10.1 % (21-51); MEAN CORPUSCULAR HGB CONC 32.7 g/dL (33.0-36.5); MEAN CORPUSCULAR VOLUME 79.5 FL (78-98); MEAN PLATELET VOLUME 8.1 FL (7.4-10.4); MONOCYTES # (AUTO) 0.4 X10'3 (0-0.9); MONOCYTES % (AUTO) 4.4 % (2-12); NEUTROPHILS # (AUTO) 7.9 X10'3 (1.8-7.7); NEUTROPHILS % (AUTO) 84.3 % (42-75); PLATELET COUNT 310 X10'3 (140-440); RED BLOOD COUNT 4.94 X10'6 (4.20-5.60); RED CELL DISTRIBUTION WIDTH 14.6 % (11.5-14.5); WHITE BLOOD COUNT 9.3 X10'3 (4.5-11.0)
[2021-03-26 15:47] LABS: ALANINE AMINOTRANSFERASE 34 U/L (12-78); ALBUMIN 3.6 G/DL (3.4-5.0); ALBUMIN/GLOBULIN RATIO 0.8 (1.1-1.5); ALKALINE PHOSPHATASE 110 IU/L (46-116); ANION GAP 11 (8-16); ASPARTATE AMINO TRANSFERASE 28 U/L (10-37); BILIRUBIN,TOTAL 0.2 MG/DL (0.1-1.0); BLOOD UREA NITROGEN 4 MG/DL (7-18); BUN/CREATININE RATIO 6.8 (6.6-38.0); CALCIUM 8.5 MG/DL (8.5-10.1); CHLORIDE 103 MMOL/L (99-107); CREATININE 0.59 MG/DL (0.40-0.90); GLUCOSE 105 MG/DL (70-104); POTASSIUM 3.9 MMOL/L (3.5-5.1); SODIUM 140 MMOL/L (135-145); TOTAL CARBON DIOXIDE 25.8 MMOL/L (24-32); TOTAL PROTEIN 7.9 G/DL (6.4-8.2); eGFR > 90 ML/MIN
[2021-03-26] MEDS ORDERED: LIDOcaine 1% W/epiNEPHrine 1:200,000 10ml vial IJ ONE (15:50)
[2021-03-26] MEDS ORDERED: CEPH-585 PO (17:40)
[2021-03-26] MEDS ORDERED: SULF1TAB49 PO (17:40)
[2021-03-26] MEDS ORDERED: cephalexin 250mg capsule PO ONE (18:00)
[2021-03-26] MEDS ORDERED: sulfamethoxazole/trimethoprim DS (800/160mg) tablet PO ONE (18:00)
[2021-03-26] MEDS ORDERED: naloxone 2mg/2ml inj IV STA (20:07)
--- NOTE | 2021-03-26 20:11 | NUR ---
PT REMAINS EXTREMELY SOMULENT BUT WILL AWAKEN WITH STERNAL RUB - UNK IF FROM EARLIER ATIVAN OR HEROIN USE. VERBAL FROM [facility] FOR 2MG NARCAN. PT MORE RESPONSIVE S\P NARCAN BUT STILL WON'T TELL US A PHONE NUMBER OR ADDRESS.
--- NOTE | 2021-03-26 21:12 | NUR ---
phone # & address pulled from [facility] website. [id number]
--- NOTE | 2021-03-26 23:30 | NUR ---
PT AWAKE AND EATING YOGURT, UNABLE TO STAY AWAKE,
--- NOTE | 2021-03-27 00:28 | NUR ---
PT AWAKE AMBULATED TO THE [facility] W/O DIFFICULTY.
--- NOTE | 2021-03-27 00:30 | NUR ---
CONTACTED PTS MOM FOR A NAME AND NUMBER OF A PERSON WHO WILL BE AT THE ADDRESS ON FILE IF WE CALL A CAB. THIS PERSON IS SHIRLEY [phone], MOM ZOHAIB [phone]
[2021-03-27 00:39] VITALS: BP 127/82
== END 2021-03-27 00:50 | disposition home or self-care (01) ==
LOC: ER 13:22
DX: L02.414 Cutaneous abscess of left upper limb (principal); R07.89 Other chest pain; R06.02 Shortness of breath; R00.0 Tachycardia, unspecified; F41.9 Anxiety disorder, unspecified; F15.90 Other stimulant use, unspecified, uncomplicated; F11.90 Opioid use, unspecified, uncomplicated; Z87.440 Personal history of urinary (tract) infections; Z98.890 Other specified postprocedural states; Z72.89 Other problems related to lifestyle; Z56.0 Unemployment, unspecified; Z79.2 Long term (current) use of antibiotics; Z79.899 Other long term (current) drug therapy
CPT/HCPCS: 10060; 36415; 71045; 80053; 83735; 83880; 84484; 85025; 87070; 87077; 87186; 93005; 96361; 96374; 96375; 96376; 99285; J2060; J2310; J7030

== ENCOUNTER 2025-07-12 18:52 | Emergency (ER) | payer MEDICAID ==
[~2025-07-12] VITALS: Ht 165.1 cm; Wt 59.1 kg
[2025-07-12 18:59] VITALS: BP 119/82; TEMP 98.1
--- NOTE | 2025-07-12 19:07 | Physician Documentation ---
History of Present Illness ~ Chief Complaint: Abscess Stated Complaint: SPIDER BITE Time Seen by MD: 19:01 Primary Medical Doctor: wander MANCILLA This is a 34-year-old female who reports no prior medical history, denies HAV, diabetes, any other immunocompromise, presents for evaluation of wound, swelling, purulent discharge on the right foot that has been present for two da ys. Denies any trigger provocation. She is homeless. Is exposed to elements. The pain is worse when she is ambulating. Palliated with the position of comfort. She went to [facility] several days ago, they gave me a shot. 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 Her symptoms are not improving. She reports chills. She smokes, uses methamphetamines, denies use of alcohol, denies any chance of being . Tetanus Within 5 Years: Yes Medication Reconciliation Allergies: Coded Allergies: No Known Allergies (Unverified , 09/05/16) Scheduled Buprenorphine Hcl (Buprenorphine Hcl), Unknown Dose SL DAILY, (Reported) Past Medical History Past Medical History: *GI/HEPATOBILIARY*, UTI, Anxiety Past Surgical History: orthopedic surgeries Patient History: Breast cancer FAMILY/OTHER (Sister), Age: 30 Alcohol Use: Abuse Drug Use: methamphetamine, heroin Lives with: S/O Lives In: Home Occupation: unemployed Review of Systems ROS 10 point review of systems was performed and unless noted above in HPI is negative for acute process/complaint. Physical Exam Vital Signs: Temperature: 98.1, Source: Temporal, Heart Rate: 136, Respiratory Rate: 15, BP: 119/82, Pulse Oximetry: 99 Physical Exam GENERAL: Awake, alert, oriented, GCS 15, no apparent distress, non-toxic appearing, answers questions, follows commands appropriately. HEENT: Atraumatic, normocephalic, pupils equal, extraocular muscles intact, sclerae anicteric, mucus membranes moist, oropharynx is clear, no stridor. NECK: supple, full active range of motion, trachea midline, no thyromegaly, no lymphadenopathy, no JVD. CARDIOVASCULAR: Tachycardic and regular rate/rhythm, no murmurs/gallops/rubs, Pulses are 2+ in all extremities and symmetric. Capillary refill less than 2 seconds. PULMONARY: Nonlabored, good air movement ,no respiratory distress, speaking in full sentences, clear to auscultation bilaterally, no wheezing, no ronchi, no rales, no accessory muscle use. GASTROINTESTINAL: Soft, non-tender, non-distended, normal active bowel sounds, no organomegaly, no pulsatile masses, no CVA tenderness. NEUROLOGIC: Lucid with normal mental status. Normal facial symmetry. Moves all extremities symmetrically and with purpose. No truncal ataxia. Speech is fluid without evidence of dysarthria or aphasia, no focal deficits appreciated. MUSCULOSKELETAL: There is full range of motion of all extremities. There is no joint pain or joint swelling or joint erythema. There is no muscle pain or tenderness or swelling. EXTREMITIES: warm, well-perfused, no cyanosis, no clubbing, no edema, no acute deformities. Skin: warm, dry, no rashes or lesions, no jaundice, no petechiae orpurpura. No ecchymosis. PSYCHIATRIC: Normal affect, normal insight, normal concentration. Focused exam: [There is marked swelling, tenderness, calor with a a umbilicated 1.5 cm wound that arises above the foot. Small amount of clear and purulent discharge. Cap refill less than 2 seconds. No lymphangitis. Progress Results/Orders Results/Orders Orders - MITCHELL MOSQUERA DO Ct Lower Extremity (07/12/25 19:01) Culture Blood (07/12/25 19:01) Urinalysis, Cult If Indicated (07/12/25 19:) Saline Lock (07/12/25 19:01) Hcg, Ur Ql (07/12/25 19:01) Drug Screen, Urine (07/12/25 19:) Potassium Cl 10meq/100ml Bag (Potassium (07/12/25 20:35) Completed Orders - MITCHELL MOSQUERA DO Cbc/Diff (07/12/25 19:) ESR (07/12/25 19:) C-Reactive Protein (07/12/25 19:01) CMP (07/12/25 19:) Lacticsepsis (07/12/25 19:) Hcg Serum Ql (07/12/25 19:) Ethanol (07/12/25 19:01) Piperacillin/Tazo 4.5gm/100ml (Zosyn 4.5 (07/12/25 19:05) Normal Saline 1000ml (0.9% Sodium Chlori (07/12/25 19:05) Iohexol 300mg/Ml 100ml Inj. (Omnipaque-3 (07/12/25 20:01) Potassium Bicarb/Cit Acid Tab (K-Lyte Ta (07/12/25 20:35) Ondansetron Inj. (Zofran 4mg/2ml Vial) (07/12/25 20:35) Magnesium Sulf-Water 2g/50ml (Magnesium (07/12/25 20:35) Medications Received in ER Medications (Trade) Dose Ordered Sig/Wander Route PRN Reason Start Time Stop Time Status Last Admin Dose Admin Piperacillin/ Tazobactam/ Dextrose 100 ml @ 100 mls/hr ONCE ONCE IV 07/12/25 19:05 07/12/25 20:04 DC 07/12/25 21:18 100 MLS/HR (0.9% sodium chloride (NS) 1000ml IV soln) 1,000 ml ONCE ONCE IVB 07/12/25 19:05 07/12/25 19:06 DC 07/12/25 20:55 1,000 ML (K-Lyte tablet, effervescent) 50 meq ONCE ONCE PO 07/12/25 20:35 07/12/25 21:04 DC 07/12/25 22:09 50 MEQ Potassium Chloride 100 ml @ 100 mls/hr Q1H IV 07/12/25 20:35 07/13/25 00:34 07/12/25 22:19 100 MLS/HR (Zofran 4mg/2ml vial) 4 mg ONCE ONCE IV 07/12/25 20:35 07/12/25 20:52 DC 07/12/25 22:14 4 MG Magnesium Sulfate 50 ml @ 100 mls/hr ONCE ONCE IV 07/12/25 20:35 07/12/25 21:04 DC 07/12/25 22:00 100 MLS/HR Vital Signs 07/12/25 18:59 Temp 98.1 Pulse 136 Resp 15 B/P (MAP) 119/82 Pulse Ox 99 Laboratory Tests Test 07/12/25 19:38 White Blood Count 12.3 H Red Blood Count 4.73 Hemoglobin 12.4 Hematocrit 38.2 Mean Corpuscular Volume 80.7 Mean Corpuscular Hemoglobin 26.2 L Mean Corpuscular Hemoglobin Concent 32.5 L Red Cell Distribution Width 14.1 Platelet Count 420 Mean Platelet Volume 7.9 Neutrophils (%) (Auto) 74.0 Lymphocytes (%) (Auto) 16.7 L Monocytes (%) (Auto) 7.1 Eosinophils (%) (Auto) 1.7 Basophils (%) (Auto) 0.5 Neutrophils # (Auto) 9.1 H Lymphocytes # (Auto) 2.1 Monocytes # (Auto) 0.9 Eosinophils # (Auto) 0.2 Basophils # (Auto) 0.1 CBC Comment Erythrocyte Sedimentation Rate 25 H Sodium Level 137 Potassium Level 2.8 *L Chloride Level 98 L Carbon Dioxide Level 30.1 Anion Gap 9 Blood Urea Nitrogen 3 L Creatinine 0.69 Estimated GFR/1.73 m2 > 90 BUN/Creatinine Ratio 4.3 L Glucose Level 101 Lactic Acid Level 1.6 Calcium Level 8.5 Total Bilirubin 0.4 Aspartate Amino Transf (AST/SGOT) 25 Alanine Aminotransferase (ALT/SGPT) 33 Alkaline Phosphatase 196 H C-Reactive Protein 14.21 H Total Protein 7.9 Albumin 3.3 L Globulin 4.6 H Albumin/Globulin Ratio 0.7 L Human Chorionic Gonadotropin, Qual Negative Chemistry Comments Ethyl Alcohol Level < 10 Microbiology Date/Time Source Procedure Growth Status 07/12/25 19:38 Blood Hand Left Blood Culture - Preliminary NEGATIVE (LESS THAN 24 HOURS) Resulted Medical Decision Making Findings Facility Status: [facility] The plan was discussed with the patient, who demonstrates clear understanding of the plan and is in agreement with the plan unless otherwise noted in the chart. All questions have been answered, all concerns were addressed unless otherwise documented. I was available throughout their ED stay for frequent reassessment and questions. Differential Diagnoses (considered and possible or likely): [Cellulitis, abscess, osteomyelitis, necrotizing infection had also been considered.] ??Differential Diagnoses (considered and unlikely, not requiring evaluation currently): [No evidence of neurovascular compromise at this time] MDM Data Please see HPI for the following: Independent Historians and external Records Review. Historian: [Patient] Independent Historians: ?[Record review] Medication Management: [Reviewed medication list] Social History and determinants: [Reviewed] Please see the body of the note for the following: Any independent interpretations of ECG, imaging studies. All vitals signs/haemodynamics, ordered tests were independently reviewed and interpreted by myself. Nursing triage complaint and vitals reviewed, additional nursing notes were reviewed as available and I agree unless otherwise noted or documented in contradiction in the chart Vital Signs: Independently reviewed Labs: Independently interpreted Imaging: Independently interpreted Old Medical Records: Independently reviewed, see HPI for relevant summary and information Pulse Oximetry: [99%] interpreted as [normal on room air] by me [Double Reamer Operator: Tachycardic Rate, Regular rhythm, no ectopy, sinus tachycardia. reviewed and interpreted by me] Additionally notably showing: [Hemodynamics reviewed. The patient is tachycardic, not hypotensive, not febrile, no evidence of respiratory distress. Laboratory studies showed leukocytosis. 74% neutrophilic predominance. ESR is elevated at 25. Metabolic panel notable for hypokalemia of 2.8. CRP is markedly elevated. She is not . Lactic acid is normal. Ethanol is negative.] Tests considered but not ordered include: [CT of the extremity has been considered, has been ordered, however the patient abscond it.] Social Determinants of Health Impact: Patient was evaluated in [facility], [facility] [place] to healthcare due to below par ratio of patient to medical providers. [] Comorbid Conditions Impacting Present Evaluation and Care/Treatment: [Polysubstance use] Management Discussions with other Healthcare Providers: [None, patient abscond it] Treatment and Disposition Medication Management (Given or considered): [I have ordered antibiotics, potassium replacement, magnesium replacement, however the patient decided to leave against medical advice]. See EMR for details Consideration for Hospitalization/Escalation/Deescalation of Care: Admission for observation has been considered, and would has been necessary for management of her sepsis. ?ED Course:?[Patient had develop methamphetamine deficiency while in the emergency department, wanted to go outside so she could rectify this problem, however when she was told that she can not do so she decided to leave against medical advice. It was explained to her that she has a severe in gross infection of her foot, and it is likely to progress to sepsis, severe sepsis, possibly septic shock and she might end up losing her foot. The patient is informed us that she was mad with us and left against medical advice.] ?Shared decision making:?[] Code status:?FULL Please see the full Electronic Medical Record for full details of nursing documentation, medications list, other records of complete past medical history and conditions, vital signs, laboratory studies, and any radiologic study interpretations by radiologists. Portions of this note were completed using [employer] dictation software and as a result there may exist minor errors in spelling. I have reviewed elements of past family and social history and agree as included in note. Departure Disposition: 07 LEFT AGAINST MEDICAL ADVICE Impression: Primary Impression: Foot infection Additional Impression: Sepsis Condition: Guarded Referrals: NO PRIMARY CARE PROVIDER (PCP) Education Educated: Patient Educated regarding: diagnosis, treatment, prognosis Signature Scribe Signature: No scribe Attestation: This note accurately reflects clinical decisions, work performed by myself, DO EVELINE Nobles NICHOLAS M DO Jul 12, 2025 19:07
[2025-07-12 19:56] LABS: MEAN PLATELET VOLUME 7.9 FL (7.4-10.4); RED CELL DISTRIBUTION WIDTH 14.1 % (11.5-14.5)
[2025-07-12] MEDS ORDERED: iohexol 300mg/ml 100ml inj. ONE (20:01)
[2025-07-12 20:08] LABS: CREATININE 0.69 MG/DL (0.40-0.90); ETHANOL < 10 MG/DL (<10); HCG SERUM QL NEGATIVE; TOTAL CARBON DIOXIDE 30.1 MMOL/L (24-32); eGFR > 90 ML/MIN
[2025-07-12] MEDS: normal saline 1000ML IV soln IVB ONE (20:55)
[2025-07-12] MEDS: piperacillin/tazo 4.5gm/100ml 100 ML IV ONE (21:18)
[2025-07-12] MEDS: magnesium sulf-water 2g/50mL 50 ML IV ONE (22:00)
[2025-07-12] MEDS: potassium bicarbonate/cit acid 25mEq tablet.effervescent PO ONE (22:09)
[2025-07-12] MEDS: ondansetron/PF 4mg/2ml inj IV ONE (22:14)
[2025-07-12] MEDS: potassium CL 10mEq/100ml bag 100 ML IV SCH (22:19)
[2025-07-12 22:55] VITALS: PULSE 116; RESP 20; O2SAT 98
== END 2025-07-12 22:57 | disposition left against medical advice (07) ==
LOC: ER 18:53
DX: L08.89 Other specified local infections of the skin and subcutaneous tissue (principal); A41.9 Sepsis, unspecified organism; C50.919 Malignant neoplasm of unspecified site of unspecified female breast; F11.90 Opioid use, unspecified, uncomplicated; F15.90 Other stimulant use, unspecified, uncomplicated; F17.200 Nicotine dependence, unspecified, uncomplicated; F41.9 Anxiety disorder, unspecified; F10.10 Alcohol abuse, uncomplicated; Z79.899 Other long term (current) drug therapy; Z59.00 Homelessness unspecified; Z56.0 Unemployment, unspecified; Y90.0 Blood alcohol level of less than 20 mg/100 ml
CPT/HCPCS: 36415; 80053; 80320; 83605; 84703; 85025; 85651; 86140; 87040; 96361; 96365; 96368; 96375; 99284; J2405; J2543; J3480; J7030; Q9967